=== PATIENT | female | born 1980 | race Caucasian/White ===

== ENCOUNTER 2017-09-19 18:38 | Emergency (ER) | payer OTHER ==
--- NOTE | 2017-09-19 19:01 | ERNOTE ---
Head Injury HPI - General Injury to: head Time Seen by Provider: 09/19/17 18:41 Source: patient Exam Limitations: no limitations - Immun/Allergies/Home Medications Immunization: IMMUNIZATION HX Immunizations Up to Date Yes History of Influenza Vaccine Yes Hx Pneumococcal Vaccination No - History of Present Illness Narrative: Patient tripped on a slippery spot on the driveway and fell forward and struck her nose producing a laceration and epistaxis. Episode happened just prior to arrival and she rates the discomfort as [id number]. Occurred: just prior to arrival Location Occurred: home Severity: mild, moderate Method of Injury: Reports: fell Reason for Fall: Reports: tripped Loss of Consciousness: Reports: no loss of consciousness Associated Symptoms: Reports: denies symptoms Review of Systems - Review of Systems Constitutional: Present: See HPI EYE: Present: no symptoms reported ENT: Present: See HPI Respiratory: Present: no symptoms reported Cardiology: Present: no symptoms reported Gastrointestinal/Abdominal: Present: no symptoms reported Genitourinary: Present: no symptoms reported Musculoskeletal: Present: no symptoms reported Skin: Present: no symptoms reported Neurological: Present: no symptoms reported Endocrine: Present: no symptoms reported Hematologic/Lymphatic: Present: no symptoms reported Psych: Present: no symptoms reported - Patient's Past Medical History Patient History - Medical: Diabetes Type 2 Insulin Dependent Patient History - Cardiac/Respiratory: Hypertension Patient History - Cancer: No Hx of Cancer Patient History - Surgical Procedures: Back Surgery, T & A Patient History - Other: None LMP (females 10-50): now - Social History Living Situations: home Abuse History: No History of abuse Psych History: Hx of Depression Smoking Status: Never smoker Alcohol Use: none Drug Use: none - Immunizations Immunizations Up to Date: Yes Hx Pneumococcal Vaccination: No History of Influenza Vaccine: Yes Physical Exam - Physical Exam General Appearance: Present: wd/wn, alert, moderate distress Head Exam: Present: other - nasal laceration Eye Exam: Normal inspection: bilateral, PERRL: bilateral Ears, Nose, Throat: Present: other - approximate 2 cm L-shaped laceration on the bridge of the nose Neck: Present: normal inspection, nontender Respiratory: Present: no respiratory distress, normal breath sounds, no accessory muscle use, chest nontender, lungs clear Cardiovascular/Chest: Present: regular rate, rhythm, no murmur, normal peripheral pulses Gastrointestinal/Abdominal: Present: normal bowel sounds, nontender, nondistended, soft, no organomegaly Rectal Exam: Present: deferred Back Exam: Present: normal inspection, normal range of motion Extremity Exam: Present: normal inspection, non-tender, no edema, normal range of motion Neurological Exam: Present: alert, oriented, normal mood/affect Skin Exam: Present: normal color, warm/dry Lymphatic Exam: Present: no adenopathy ED Progress - Vital Signs Patient's Vital Signs:: I have reviewed the patient's vital signs. Vital Signs: Vital Signs 09/19/17 18:43 Temperature 36 C L Pulse Rate 86 Respiratory 20 Rate Blood Pressure 140/83 O2 Sat by Pulse 100 Oximetry - CT/Ultrasound CT/Ultrasound Narrative: CT maxillofacial was reviewed by me - Progress/Reassessment Chief Complaint: Head Injury Procedures Face Anesthesia: 1% Lidocaine I & D Prep: other - Hibiclens Wound's Depth/Shape: into subcutaneous Wound Explored: contaminated moderately Wound Intervention: irrigated w/saline Distal NVT: neuro/vasc intact Suture Size/Type: 4-0, nylon Number of Sutures: 5 Layer Closure: Simple Wound Dressing: sterile dressing applied Complications: Pt milo procedure well Plan - Plan Plan: Patient had both moderate contusion and avulsion laceration of the bridge of the nose. Patient believes that bridge or glasses ripped away part of the skin at the top of the bridge of the nose. We were able to pull the wound together fairly well although I suspect it will be a scar at the very top of the nose because of there was loss of some tissue there. We will recommend that the patient keep the sutures in for 7 days rather than the typical 5 days for the facial laceration given the contusion and avulsion nature of the laceration. Patient's Adacel is under 5 years so she will not require one of those today. After the laceration heals and the swelling is going down the patient may likely need to see an ENT for the deviated septum. No intervention needed at this point nasal bone fractures. Departure Clinical Impression: Deviated nasal septum Nasal bone fractures Qualifiers: Encounter type: initial encounter Fracture type: closed Qualified Code(s): S02.2XXA - Fracture of nasal bones, initial encounter for closed fracture Facial laceration Qualifiers: Encounter type: initial encounter Qualified Code(s): S01.81XA - Laceration without foreign body of other part of head, initial encounter - Departure Disposition: Home self-care Condition: Good Instructions: Laceration Care, Adult, [id number], Deviated Septum Additional Instructions: Return in 7 days for suture removal Discussed ENT referral with your family doctor Referrals: Isaiah Marin DO [Primary Care Provider] -
[2017-09-19 19:38] VITALS: BP 134/80
== END 2017-09-19 19:39 | disposition home or self-care (01) ==
LOC: ER 18:38
PROC: 0JQ10ZZ Repair Face Subcutaneous Tissue and Fascia, Open Approach (ICD-10-PCS; principal; 2017-09-19)
DX: S01.21XA Laceration without foreign body of nose, initial encounter; W00.0XXA Fall on same level due to ice and snow, initial encounter; Y92.008 Other place in unspecified non-institutional (private) residence as the place of occurrence of the external cause; S02.2XXA Fracture of nasal bones, initial encounter for closed fracture